=== PATIENT | female | born 1965 ===

== ENCOUNTER → 2021-06-23 | Outpatient (CLI) | payer OTHER | END | disposition home or self-care (01) | LOC: LAB 13:40 → LAB SHORT 13:40 | DX: L03.115 Cellulitis of right lower limb (principal) | CPT/HCPCS: 87070; 87077; 87147; 87186; 87205 ==

== ENCOUNTER → 2022-10-18 | Outpatient (CLI) | payer OTHER ==
[2022-10-21 15:10] LABS: HPV 16 Negative (Negative); HPV 18 Negative (Negative); HPV OTHER HR TYPES Negative (Negative)
== END | disposition home or self-care (01) ==
LOC: RAD SHORT 08:25
PROVIDERS: Family Medicine
DX: Z01.419 Encounter for gynecological examination (general) (routine) without abnormal findings (principal)
CPT/HCPCS: 87624; G0145

== ENCOUNTER 2024-09-04 07:36 | Day surgery (SDC) | payer BC, OTHER ==
[~2024-09-04] VITALS: Ht 170.2 cm; Wt 119.1 kg
[2024-09-04] VITALS (12 sets, daily range): BP systolic 97–116; BP diastolic 46–76
[~2024-09-04 07:36] MED LIST: ATOR40TA PO; BASAGLAR K100 UNIT/1 SC; FARXIGA5 MG PO; FURO20 PO; FURO40 PO; GABA100 PO; GABA400 PO; LOSA25 PO; METF500 PO; NOVOLOG100 UNIT/2 SC; OZEMPIC2 MG/0.75 SC; PIOG15 PO
[2024-09-04] MEDS ORDERED: CeFAZolin Sodium 2,000 MG in NS 100 ML IV SCH ×2 (07:50→18:20)
[2024-09-04] MEDS ORDERED: Tranexamic Acid 1,000 MG in NS 100 ML IV SCH (07:50)
[2024-09-04] MEDS ORDERED: OxyCODONE HCL 10 MG TABCR PO SCH (07:50)
[2024-09-04] MEDS ORDERED: Lactated Ringer's 1,000 ML IV SCH ×2 (07:50→10:05)
[2024-09-04] MEDS ORDERED: Acetaminophen 500 MG Tab PO SCH ×2 (07:50→16:00)
[2024-09-04] MEDS ORDERED: Ropivacaine 0.5% HCl/Pf 123.125 MG,EPINEPHrine HCL 0.25 MG,Ketorolac Tromethamine 15 MG... INFIL SCH (07:50)
[2024-09-04] MEDS ORDERED: Chlorhexidine Mouth Care 15 ML UDC MT SCH (07:50)
[2024-09-04] MEDS ORDERED: CeFAZolin Sodium 2,000 MG VIAL ONE (08:08)
--- NOTE | 2024-09-04 08:49 | NUR ---
Ambulatory in Day Surgery. History, Chart, Medications and Allergies reviewed before start of procedure. Patient confirms NPO status and agrees with scheduled surgery. Patient reports completing Chlorhexadine shower X2 prior to admission to hospital. Surgical site prepped with 2% Chlorhexidine cloth wipe. Patient States Post-Procedure ride home has been arranged. Personal items under gurney/labled and place in PACU.
--- NOTE | 2024-09-04 09:03 | NUR ---
History, Chart, Medications and Allergies reviewed before start of procedure. Pre-Op teaching done. Pt verbalizes understanding. Patient confirms NPO status and agrees with scheduled surgery. PT BELONGINGS BAG PLACED UNDER GURNEY. PT PERSONAL BELONGINGS BAG, THAT WAS BROUGHT FROM HOME, LABELED AND PLACED IN PACU. PT REMOVED GLASSES AND PLACED THEM IN A PERSONAL CASE, THEN PLACED IN PERSONAL BELONINGS BAG.
[2024-09-04] MEDS ORDERED: Midazolam HCl 1MG / ML 2ML Vial ONE (09:35)
[2024-09-04] MEDS ORDERED: Bupivacaine 0.5% HCl 5 MG/ML 30MLVIAL ONE (09:35)
[2024-09-04] MEDS ORDERED: HYDROmorphone HCl/Pf 1MG SYR IV PRN (09:40)
[2024-09-04] MEDS ORDERED: Promethazine HCl 25 MG Tab PO PRN (09:45)
[2024-09-04] MEDS ORDERED: FLU VACC TS2024-25(6MOS UP)/PF 45 MCG/0.5 ML SYRINGE IM SCH (09:45)
[2024-09-04] MEDS ORDERED: Bisacodyl 10 MG Supp PR PRN (09:45)
[2024-09-04] MEDS ORDERED: OxyCODONE HCL 5 MG TAB PO PRN ×2 (09:45→09:50)
[2024-09-04] MEDS ORDERED: DiphenhydrAMINE HCL 25 MG Cap PO PRN (09:45)
[2024-09-04] MEDS ORDERED: Magnesium Hydroxide Conc 10 ML UDC PO PRN (10:05)
[2024-09-04] MEDS ORDERED: Metoclopramide HCl 5MG / ML 2ML Vial IV PRN (10:05)
[2024-09-04] MEDS ORDERED: Ondansetron HCl 2 MG / ML 2ML Vial IV PRN (10:05)
[2024-09-04] MEDS ORDERED: Insulin Human Lispro 100 Units/ML 3ML Syringe SC PRN (10:10)
[2024-09-04] MEDS ORDERED: propofoL 20 ML IV ONE ×3 (10:17→11:15)
[2024-09-04] MEDS ORDERED: Insulin Regular 100 UNIT/ML 10ML Vial SC SCH (11:30)
--- NOTE | 2024-09-04 12:53 | NUR ---
PT ARRIVED TO RM 218 FROM PACU AT APPROXIMATELY 1232. PT DENIES PAIN. PT'S BLE ARE NUMB AND SHE IS UNABLE TO MOVE R/T SPINAL ANESTHESIA, SENSATION AT L1. SPINAL SITE WNL. R KNEE SURGICAL SITE WNL, DRESSING C/D/I. PT EDUCATED TO USE CALL LIGHT AND IT WAS PLACED WITHIN REACH. VSS. BLOOD GLUCOSE 117. PT TOLERATING CLEAR LIQUIDS AND CRACKERS.
[2024-09-04] MEDS ORDERED: MetFORMIN HCl 500 mg PO SCH (17:00)
[2024-09-04] MEDS ORDERED: Losartan Potassium 25 MG Tab PO SCH ×2 (18:00→21:00)
[2024-09-04] MEDS ORDERED: Ketorolac Tromethamine 15mg Vial IV SCH (18:00)
[2024-09-04] MEDS ORDERED: Insulin Glargine-Yfgn 100 Unit/mL 3 ML SYR SC SCH (18:00)
[2024-09-04] MEDS ORDERED: Atorvastatin 40 MG Tab PO SCH (18:00)
--- NOTE | 2024-09-04 18:14 | NUR ---
SHIFT SUMMARY PT IS POD#0 FROM R TKA WITH DR. RODRIGUEZ. PAIN MANAGED WITH PO PAIN MEDICATION, TYLENOL AND TORADOL. PT IS TOLERATING PO. SHE HAS BEEN ABLE TO VOID. PT WORKED WITH PHYSICAL THERAPY BUT DID NOT CLEAR TO DISCHARGE HOME. PT HAD SOME SOFT BLOOD PRESSURES TODAY, NOW IMPROVED. PT USES HER CALL LIGHT APPROPRIATELY.
[2024-09-04] MEDS ORDERED: Gabapentin 400 MG Cap PO SCH (21:00)
[2024-09-04] MEDS ORDERED: Docusate Sodium 100 MG Cap PO SCH (21:00)
[2024-09-05 00:17] VITALS: BP 108/69
[2024-09-05 03:05] VITALS: BP 118/68
--- NOTE | 2024-09-05 04:24 | NUR ---
SHIFT SUMMARY POD1 RTKA, AQUACEL C/D/I. MARJORIE WRAP. ICE AND BRIAN HOSE IN PLACE. VOIDING, 1 ASSIST GB, FWW TO THE BR. TOERATING PO INTAKE. PAIN MANAGED WELL. RA. VSS CALL LIGHT IN REACH.
[2024-09-05 05:17] LABS: BASOPHILS ABSOLUTE AUTO 0.05 K/mm3 (0.00-0.23); BASOPHILS PERCENT AUTO 1 % (0-2); EOSINOPHILS ABSOLUTE AUTO 0.34 K/mm3 (0.00-0.68); EOSINOPHILS PERCENT AUTO 3 % (0-6); Hematocrit 36.4 % (33.0-51.0); Hemoglobin 11.2 g/dL (11.5-16.0); IMMATURE GRAN ABSOLUTE AUTO 0.04 K/mm3 (0.00-0.10); IMMATURE GRAN PERCENT AUTO 0 % (0-1); LYMPHOCYTES ABSOLUTE AUTO 2.38 K/mm3 (0.84-5.20); LYMPHOCYTES PERCENT AUTO 22 % (21-46); MONOCYTES ABSOLUTE AUTO 0.73 K/mm3 (0.16-1.47); MONOCYTES PERCENT AUTO 7 % (4-13); Mean Corpuscular HGB Conc 30.8 g/dL (31.5-36.5); Mean Corpuscular Volume 85 fL (80-100); Mean Platelet Volume 9.4 fL (9.1-12.4); NEUTROPHILS PERCENT AUTO 67 % (41-73); Platelet Count 312 K/mm3 (150-400); RDW Coefficient Variation 15.9 % (11.7-14.2); RDW Standard Deviation 48.7 fL (35.1-46.3); White Blood Cell Count 10.74 K/mm3 (4.00-11.30)
[2024-09-05 05:55] LABS: Bun/Creatinine Ratio 21.9 (12.0-20.0); Calcium, Blood 9.1 mg/dL (8.5-10.1); Creatinine, Blood 0.87 mg/dL (0.40-1.00); Potassium, Blood 4.1 mmol/L (3.5-5.5)
[2024-09-05 07:24] VITALS: BP 105/66
[2024-09-05] MEDS ORDERED: Gabapentin 400 MG Cap PO SCH (09:00)
[2024-09-05] MEDS ORDERED: Furosemide 40 MG Tab PO SCH (09:00)
[2024-09-05] MEDS ORDERED: Pioglitazone HCl 15 MG Tab PO SCH (09:00)
[2024-09-05] MEDS ORDERED: Aspirin 81 MG Chew PO SCH (09:00)
[2024-09-05] MEDS ORDERED: Empagliflozin 25 MG TAB PO SCH (09:00)
--- NOTE | 2024-09-05 10:49 | NUR ---
DISCHARGE NOTE PT A/OX4. AARTI PO INTAKE WELL. PT HAS VOIDED W/O ISSUE. CLEARED BY PHYSICAL THERAPY. ADEQUATE PAIN CONTROL WITH PO MEDS. PT VERBALIZES UNDERSTANDING OF D/C INST AND QUESTIONS ANSWERED. PT TO F/U WITH [facility] IN 2 WEEKS. SENT HOME WITH EXTRA AQUACEL DRESSINGS. PT ESCORTED TO LOBBY VIA .
[2024-09-06] MEDS ORDERED: SEMAGLUTIDE SC SCH (09:00)
== END 2024-09-05 11:00 | disposition home or self-care (01) ==
LOC: ORSCMMR 07:36 → ORD 09:15 → ORSCMMR 09:15 → ORD 12:30 → SURS 12:33 → ORD 13:45 → ORSCMMR 09-05 11:00
PROVIDERS: Orthopaedic Surgery
PROC: 0SRC0J9 Replacement of Right Knee Joint with Synthetic Substitute, Cemented, Open Approach (ICD-10-PCS; principal; 2024-09-04 09:15)
DX: M17.11 Unilateral primary osteoarthritis, right knee (principal); I10 Essential (primary) hypertension; E11.9 Type 2 diabetes mellitus without complications; Z79.4 Long term (current) use of insulin; Z79.84 Long term (current) use of oral hypoglycemic drugs; E66.01 Morbid (severe) obesity due to excess calories; Z68.41 Body mass index [BMI] 40.0-44.9, adult
CPT/HCPCS: 36415; 73560-RT; 80048; 82947; 85025; 97110; 97116; 97162; A9270; C1713; C1776; J0171; J0690; J0735; J1815; J1885; J2250; J2704; J2795; J7120

== ENCOUNTER 2024-11-29 14:36 | Emergency (ER) | payer OTHER ==
[~2024-11-29] VITALS: Ht 170.2 cm; Wt 117.9 kg
[2024-11-29 14:58] VITALS: BP 161/98
[2024-11-29] MEDS ORDERED: SULTRIDS PO (16:49)
[2024-11-29] MEDS ORDERED: Trimethoprim/Sulfamethoxazole DS Tab PO ONE (16:55)
== END 2024-11-29 16:56 | disposition home or self-care (01) ==
LOC: ER 14:36
DX: L03.115 Cellulitis of right lower limb (principal); Z96.651 Presence of right artificial knee joint; Z79.899 Other long term (current) drug therapy; Z88.1 Allergy status to other antibiotic agents; Z79.84 Long term (current) use of oral hypoglycemic drugs; Z79.4 Long term (current) use of insulin; Z79.85 Long-term (current) use of injectable non-insulin antidiabetic drugs
CPT/HCPCS: 93971; 99283-25; A9270